=== PATIENT | male | born 1950 | race Caucasian/White ===

== ENCOUNTER 2025-04-08 13:41 | Inpatient (IN) | payer OTHER, BC ==
[2025-04-08 14:00] VITALS: BMI 31.8
[2025-04-08] MEDS ORDERED: ASPIRIN 81 MG CHEWABLE TABLETS ONE (14:43)
[2025-04-08] MEDS: ASPIRIN 81 MG CHEWABLE TABLETS PO ONE (14:44)
[2025-04-08] MEDS: SODIUM CHLORIDE 0.9% 500 ML INFUS.BAG IV ONE ×2 (14:50→17:10)
[2025-04-08 15:22] LABS: ABSOLUTE IMMATURE GRANULOCYTES 0.04 x10^3/uL (0.0-0.031); BASOPHILS # 0.08 x10^3/uL (0.01-0.08); EOSINOPHIL % 1.0 % (0.8-7.0); EOSINOPHILS # 0.11 x10^3/uL (0.04-0.54); MCHC 33.3 g/dl (32.3-36.5); MEAN CELL VOLUME 92.7 fl (79.0-92.2); MEAN PLT VOLUME 11.4 fl (9.4-12.4); MONOCYTE # 0.86 x10^3/uL (0.30-0.82); MONOCYTE % 7.4 % (5.3-12.2); RDW 12.3 % (12.2-16.6)
[2025-04-08 15:42] LABS: GLUCOSE,RANDOM 121.0 mg/dL (74-106)
[2025-04-08 15:43] LABS: CO2 21.0 mmol/L (21-32)
[2025-04-08 15:46] LABS: CREATININE 1.2 mg/dL (0.55-1.3); SGOT/AST 27.0 U/L (15-37); SGPT/ALT 46.0 U/L (13-61)
[2025-04-08 15:48] LABS: TOT PROT 7.2 g/dl (6.4-8.2)
[2025-04-08 15:49] LABS: ALK PHOS 101.0 U/L (45-117)
[2025-04-08 16:35] LABS: HCV DIAGNOSTIC IN-HOUSE W/RFLX NON-REACTIVE (NONREACTIVE)
[2025-04-08 16:36] LABS: HIV INTERPRETATION NEGATIVE (NEGATIVE)
[2025-04-08] MEDS: ATORVASTATIN CA 80 MG TABLET (FP) PO SCH ×2 (21:24→22:59)
[2025-04-08] MEDS ORDERED: INSULIN ASPART SLIDING SCALE (NOVOLOG) 1 VIAL SQ SCH (23:00)
[2025-04-08] MEDS: SODIUM CHLORIDE 1,000 ML IV SCH (23:39)
[2025-04-08] MEDS: ATORVASTATIN CA 40 MG TABLET (FP) PO SCH (23:40)
[2025-04-09 06:48] VITALS: BP 144/71; PULSE 52; RESP 16; TEMP 98.6
[2025-04-09 07:34] LABS: ABSOLUTE IMMATURE GRANULOCYTES 0.02 x10^3/uL (0.0-0.031); BASOPHILS # 0.06 x10^3/uL (0.01-0.08); EOSINOPHIL % 1.5 % (0.8-7.0); EOSINOPHILS # 0.13 x10^3/uL (0.04-0.54); MCHC 33.2 g/dl (32.3-36.5); MEAN CELL VOLUME 91.8 fl (79.0-92.2); MEAN PLT VOLUME 11.7 fl (9.4-12.4); MONOCYTE # 0.78 x10^3/uL (0.30-0.82); MONOCYTE % 8.9 % (5.3-12.2); RDW 12.2 % (12.2-16.6)
[2025-04-09 07:55] LABS: CO2 22.0 mmol/L (21-32)
[2025-04-09 07:58] LABS: CREATININE 0.8 mg/dL (0.55-1.3); SGPT/ALT 36.0 U/L (13-61)
[2025-04-09 07:59] LABS: SGOT/AST 19.0 U/L (15-37)
[2025-04-09 08:00] LABS: TOT PROT 6.4 g/dl (6.4-8.2)
[2025-04-09 08:01] LABS: ALK PHOS 92.0 U/L (45-117)
[2025-04-09 09:40] LABS: GLUCOSE,RANDOM 128.0 mg/dL (74-106)
[2025-04-09] MEDS ORDERED: LISINOPRIL 20 MG TABLET PO SCH (10:00)
[2025-04-09] MEDS ORDERED: ENOXAPARIN NA (PORCINE) 40 MG/0.4 ML DISP.SYRIN SQ SCH (10:00)
[2025-04-09] MEDS ORDERED: amLODIPine BESYLATE 5 MG TABLET (FP) PO SCH (10:00)
== END 2025-04-09 10:10 | disposition home or self-care (01) | DRG 312 ==
LOC: JER 13:41 → JERBED 16:13 → J4W 20:50 → OBSVTOIN 20:54
PROVIDERS: ADMIT Internal Medicine; ATTEND Internal Medicine
DX: R55 Syncope and collapse (principal); I10 Essential (primary) hypertension; E78.00 Pure hypercholesterolemia, unspecified; F17.210 Nicotine dependence, cigarettes, uncomplicated; E86.9 Volume depletion, unspecified
CPT/HCPCS: 36415; 70450-TC; 71046-TC-FY; 71275-TC; 74174-TC; 80053; 82962; 83735; 84100; 84439; 84443; 84484; 85025; 86803; 87389; 93005; 93010; 99285-25; G0378; Q9967